=== PATIENT | female | born 1990 | race Hispanic/Latino ===

== ENCOUNTER 2018-01-19 22:01 | Emergency (ER) | payer OTHER ==
[2018-01-19 22:09] VITALS: BP 129/78; PULSE 93; RESP 16; TEMP 98; O2SAT 99
--- NOTE | 2018-01-19 23:24 | ED PDOC ---
Lower Extremity Pain/Injury Time Seen by Provider: 01/19/18 22:21 Chief Complaint (Nursing): Lower Extremity Problem/Injury Past Medical History Vital Signs: Last Vital Signs Temp 98 F 01/19/18 22:06 Pulse 93 H 01/19/18 22:06 Resp 16 01/19/18 22:06 BP 129/78 01/19/18 22:06 Pulse Ox 99 01/19/18 22:06 - Allergies Allergies/Adverse Reactions: Allergies Allergy/AdvReac Type Severity Reaction Status Date / Time Sulfa (Sulfonamide Allergy RASH Verified 01/19/18 22:05 Antibiotics) - ECG O2 Sat by Pulse Oximetry: 99 Disposition - Clinical Impression Clinical Impression: Ankle injury - Patient ED Disposition Is Patient to be Admitted: No - Disposition Referrals: FAMILY PROVIDER,NO [Primary Care Provider] - Galina Betancourt MD [Staff Provider] - Disposition: Routine/Home Disposition Time: 23:22 Condition: GOOD Instructions: Ankle Sprain
--- NOTE | 2018-01-20 08:24 | RAD ---
PROCEDURE: Left Ankle Radiographs. HISTORY: Left ankle pain, twisted, heard crack COMPARISON: None FINDINGS: BONES: No acute fracture or destructive bony lesion identified. JOINTS: Normal. No osteoarthritis. Ankle mortise maintained. Talar dome intact SOFT TISSUES: Prominent lateral malleolar soft tissue edema is identified with mild extension anteriorly and posteriorly as well. OTHER FINDINGS: None. IMPRESSION: Soft tissue edema is appreciated primarily overlying the lateral malleolus. No fracture, subluxation or dislocation appreciated.
== END 2018-01-19 23:41 | disposition home or self-care (01) ==
LOC: H.ER 22:01 → SUPCPDRO 22:01 → H.ER 23:41
DX: S99.911A Unspecified injury of right ankle, initial encounter (principal); X50.9XXA Other and unspecified overexertion or strenuous movements or postures, initial encounter; Y92.89 Other specified places as the place of occurrence of the external cause